=== PATIENT | male | born 1965 | race Hispanic/Latino ===

== ENCOUNTER → 2018-10-15 | Day surgery (SDC) | payer OTHER ==
[~2018-10-15] MED LIST: CRESTOR10 MG PO; PROPOFOL IV EMULSION 10 MG/ML 50 ML VIAL ONE
[2018-10-15 09:25] VITALS: BP 117/87
== END | disposition home or self-care (01) ==
LOC: OR 07:16
PROVIDERS: ATTEND Internal Medicine Gastroenterology
DX: Z12.11 Encounter for screening for malignant neoplasm of colon (principal); K64.8 Other hemorrhoids; Z71.3 Dietary counseling and surveillance; E66.3 Overweight; R01.1 Cardiac murmur, unspecified; E78.5 Hyperlipidemia, unspecified; R00.1 Bradycardia, unspecified; Z01.810 Encounter for preprocedural cardiovascular examination; Z68.29 Body mass index [BMI] 29.0-29.9, adult
CPT/HCPCS: 45378; 93005; J2704